=== PATIENT | male | born 1985 | race African-American/Black ===

== ENCOUNTER 2017-02-27 12:00 | Emergency (ER) | payer SELFPAY ==
[2017-02-27] MEDS ORDERED: PENI500T PO (12:58)
[2017-02-27] MEDS ORDERED: NAPR500T PO (12:58)
--- NOTE | 2017-02-27 12:58 | PHYS DOC ---
Past History Past Medical History: Asthma Past Surgical History: No Surgical History Alcohol Use: Occasionally Drug Use: None Adult General Chief Complaint Chief Complaint: DENTAL PROBLEM HPI HPI Patient is a 31 year old male who presents with complaint of right-sided dental and jaw pain. The patient presented to the front of house manager into triage stating that he had taken unknown medication and felt tired, however after my interview, the patient states that he primarily came to the emergency department for pain in his right jaw and teeth. The patient states that the medication he took was ibuprofen and he states that he took 5 tablets due to his pain. Patient has history of dental caries and states that he has also had history of a fractured jaw which is fully healed. The patient states that due to this injury he has had problems with alignment in his jaw and has had recurrent issues with jaw pain in the past. The patient was noted to be drowsy during triage. On my questioning, the patient states that he "just feels beat." The patient denies taking any drugs but states that he did drink alcohol last night. Patient states that he awoke this morning with headache and jaw pain. Patient denies any fever, vomiting, vision changes, or severe swelling in the neck or jaw. Patient rates his pain currently as 8 out of 10. Review of Systems Review of Systems Constitutional: Denies fever or chills [] Eyes: Denies change in visual acuity, redness, or eye pain [] HENT: Right dental and jaw pain [] Respiratory: Denies cough or shortness of breath [] Cardiovascular: Denies chest pain or edema [] GI: Denies abdominal pain, nausea, vomiting, bloody stools or diarrhea [] : Denies dysuria or hematuria [] Musculoskeletal: Denies back pain or joint pain [] Integument: Denies rash or skin lesions [] Neurologic: Denies headache, focal weakness or sensory changes [] Allergies Allergies Allergies Uncoded Allergies Type Severity Reaction Last Updated Verified SEAFOOD Allergy Unknown 02/27/17 Physical Exam Physical Exam Constitutional: Alert, afebrile, appears in mild discomfort. [] HENT: Normocephalic, atraumatic, bilateral external ears normal, oropharynx moist, dental caries present along the posterior aspect of tooth #4, direct tenderness to palpation, no gingival fluctuance or soft tissue swelling, no TMJ crepitus, nose normal. [] Eyes: PERRLA, EOMI, bilateral scleral injection, conjunctiva normal, no discharge. [] Neck: Normal range of motion, no tenderness, supple, no stridor. [] Cardiovascular:Heart rate regular rhythm, no murmur [] Lungs & Thorax: Bilateral breath sounds clear to auscultation [] Abdomen: Bowel sounds normal, soft, no tenderness, no masses, no pulsatile masses. [] Skin: Warm, dry, no erythema, no rash. [] Back: No tenderness, no CVA tenderness. [] Extremities: No tenderness, no cyanosis, no clubbing, ROM intact, no edema. [] Neurologic: Alert and oriented X 3, normal motor function, normal sensory function, no focal deficits noted. [] Current Patient Data Vital Signs Vital Signs Date Time Temp Pulse Resp B/P (MAP) Pulse Ox O2 Delivery O2 Flow Rate FiO2 02/27/17 12:00 98.3 73 16 100 Room Air EKG EKG Not performed [] Radiology/Procedures Radiology/Procedures Not performed [] Course & Med Decision Making Course & Med Decision Making Pertinent Labs and Imaging studies reviewed. (See chart for details) Discussed with patient safe use of ibuprofen at home. At this time the patient will be switched to oral Naprosyn which patient was instructed to take one tablet twice a day. Patient also started on penicillin and was given 650 mg of Tylenol for treatment of pain in the emergency department. The patient will be referred to a dentist for follow-up in the next 3-5 days for reevaluation. The patient's blood pressure was found to be high initially in the emergency department, however this did appear to come down prior to discharge. Discussed need for continued follow-up of the patient's blood pressure as the patient may need medication for control if it remains persistently high. Advised return emergency department for any worsening symptoms. Patient voiced understanding and in agreement with treatment plan. Dragon Disclaimer Dragon Disclaimer This chart was dictated in whole or in part using Voice Recognition software in a busy, high-work load, and often noisy Emergency Department environment. It may contain unintended and wholly unrecognized errors or omissions. Departure Departure: Impression: Primary Impression: Pain, dental Additional Impression: Hypertension Disposition: 01 HOME, SELF-CARE Condition: STABLE Referrals: PCP,GLADIS (PCP) Patient Instructions: Dental Pain Additional Instructions: Follow-up in 3-5 days with your dentist for reevaluation. He will also need to follow-up in one week with primary care for reevaluation of your blood pressure. If this remains high, this may need to be addressed with medication as recommended by your primary doctor. Return to the emergency department for any worsening symptoms. Scripts Naproxen (NAPROSYN) 500 Mg Tablet 1 TAB PO BID, #20 TAB 0 Refills Prov: GALLO STROUD MD 02/27/17 Penicillin V Potassium (PENICILLIN V POTASSIUM) 500 Mg Tablet 1 TAB PO QID, #40 TAB Prov: GALLO STROUD MD 02/27/17 Problem Qualifiers Additional Impression: Hypertension Hypertension type: essential hypertension Qualified Codes: I10 - Essential ( primary) hypertension GALLO STROUD MD Feb 27, 2017 12:58
[2017-02-27] MEDS ORDERED: PENICILLIN V K 250 MG TABLET. PO ONE (13:15)
[2017-02-27] MEDS ORDERED: ACETAMINOPHEN 325 MG TABLET PO ONE (13:15)
[2017-02-27 13:20] VITALS: BP 134/69
== END 2017-02-27 13:22 | disposition home or self-care (01) ==
LOC: ER 12:00
DX: K08.89 Other specified disorders of teeth and supporting structures (principal); R68.84 Jaw pain; R51 Headache; I10 Essential (primary) hypertension; J45.909 Unspecified asthma, uncomplicated; Z91.013 Allergy to seafood
CPT/HCPCS: 99283